=== PATIENT | male | born 2000 | race African-American/Black ===

== ENCOUNTER 2024-12-18 12:17 | Emergency (ER) | payer SELFPAY ==
[~2024-12-18] VITALS: Ht 177.8 cm; Wt 69.0 kg
[2024-12-18 12:19] VITALS: BP 147/95; PULSE 96; RESP 18; TEMP 36.8; O2SAT 100
== END 2024-12-18 15:47 | disposition left against medical advice (07) ==
LOC: ER 12:17
DX: M25.552 Pain in left hip (principal); Z53.21 Procedure and treatment not carried out due to patient leaving prior to being seen by health care provider